=== PATIENT | female | born 1960 | race Caucasian/White ===

== ENCOUNTER 2019-03-28 16:01 | Emergency (ER) | payer OTHER ==
[~2019-03-28] VITALS: Ht 157.5 cm; Wt 73.9 kg
[2019-03-28] MEDS ORDERED: KETO10TA2 PO (21:45)
[2019-03-28] MEDS ORDERED: FLONASE ALLERG9.9 ML NASAL (21:45)
[2019-03-28] MEDS ORDERED: CLOTRIMAZOLE-BE15 G1 TOP (21:45)
[2019-03-28] MEDS ORDERED: MOTRIN IB200 MG (21:49)
== END 2019-03-28 21:50 | disposition home or self-care (01) ==
LOC: ER 16:01
DX: J32.2 Chronic ethmoidal sinusitis (principal); G44.209 Tension-type headache, unspecified, not intractable

== ENCOUNTER 2025-05-17 11:10 | Emergency (ER) | payer OTHER ==
[~2025-05-17] VITALS: Ht 154.9 cm; Wt 73.5 kg
[~2025-05-17 11:10] MED LIST: CLOTRIMAZOLE-BE15 G1 TOP; FLONASE ALLERG9.9 ML NASAL; KETO10TA2 PO; MOTRIN IB200 MG
[2025-05-17 12:37] VITALS: BP 160/80; O2SAT 97
[2025-05-17] MEDS ORDERED: GUAIFENESIN 600 MG TABLET.SA PO ONE (13:00)
[2025-05-17] MEDS ORDERED: ACETAMINOPHEN 325 MG TABLET PO ONE (13:00)
[2025-05-17] MEDS ORDERED: ACETAMINOPHEN 500 MG GEL..CAP PO ONE (17:58)
[2025-05-17 18:24] LABS: BASO % 0.6 % (0.1-1.2); EOS # 0.01 (0.04-0.54); EOS % 0.1 % (0.7-7.0); LYMPH # 1.33 (1.18-3.74); LYMPH % 12.7 % (19.3-53.1); MEAN PLATELET VOLUME 9.50 fl (9.4-12.4); MONO # 0.73 (0.24-0.82); MONO % 7.0 % (4.7-12.5); NEUT # 8.31 (1.56-6.13); NEUT % 79.3 % (34.0-71.1); RED CELL DISTRIBUTION WIDTH 14.0 % (11.6-14.4)
[2025-05-17 18:33] LABS: COVID-19 AG NEGATIVE (NEGATIVE)
[2025-05-17 18:57] LABS: ALT/SGPT 32.0 U/L (12-78); AST/SGOT 24.0 U/L (15-37); BILIRUBIN TOTAL 0.98 mg/dL (0.3-1.2); BUN CREA RATIO 11.0 (7.0-25.0); CREATININE SERUM 0.72 mg/dL (0.55-1.02); GFR 81.81; GLOBULINA 4.8 G/DL (2.4-3.5); GLUCOSE FASTING 130.0 mg/dL (65-100); OSMOLALITY SERUM 272.0 MOSM/KG (275-295)
[2025-05-17] MEDS ORDERED: TYLENOL ARTHRI650 MG PO (19:53)
[2025-05-17] MEDS ORDERED: ZYRTEC10 MG PO (19:53)
[2025-05-17] MEDS ORDERED: BENZONATATE200 M1 PO (19:53)
== END 2025-05-17 20:14 | disposition home or self-care (01) ==
LOC: ER 11:10
PROVIDERS: General Practice
DX: J00 Acute nasopharyngitis [common cold] (principal); Z20.822 Contact with and (suspected) exposure to COVID-19